=== PATIENT | male | born 1990 | race Caucasian/White ===

== ENCOUNTER 2017-07-20 19:07 | Emergency (ER) | payer SELFPAY ==
[2017-07-20 22:50] VITALS: BP 129/70
== END 2017-07-20 22:50 | disposition home or self-care (01) ==
LOC: ED 19:07
DX: H66.91 Otitis media, unspecified, right ear (principal); H60.91 Unspecified otitis externa, right ear; F17.210 Nicotine dependence, cigarettes, uncomplicated